=== PATIENT | male | born 2000 | race Native Hawaiian/Other Pacific Islander ===

== ENCOUNTER 2021-08-08 10:00 | Emergency (ER) | payer OTHER ==
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
[2021-08-08] MEDS ORDERED: IOVERSOL 320 100 ML VIAL IVP ONE ×2 (10:25→16:20)
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
[2021-08-08 12:04] VITALS: BP 118/69
== END 2021-08-08 12:04 | disposition home or self-care (01) ==
LOC: ED 10:00
DX: S06.0X1A Concussion with loss of consciousness of 30 minutes or less, initial encounter (principal); S16.1XXA Strain of muscle, fascia and tendon at neck level, initial encounter; S20.211A Contusion of right front wall of thorax, initial encounter; M25.531 Pain in right wrist; V47.6XXA Car passenger injured in collision with fixed or stationary object in traffic accident, initial encounter; W22.12XA Striking against or struck by front passenger side automobile airbag, initial encounter; Y92.410 Unspecified street and highway as the place of occurrence of the external cause
CPT/HCPCS: 70450; 71260; 72125; 73110; 99282; 99284; Q9967